=== PATIENT | female | born 1970 ===

== ENCOUNTER 2021-06-07 14:03 | Emergency (ER) | payer OTHER ==
[2021-06-07 22:40] LABS: SARS-CoV-2 PCR by NAA DETECTED (NotDetected)
== END 2021-06-07 17:16 | disposition home or self-care (01) ==
LOC: ERS 14:03
DX: U07.1 COVID-19 (principal); J45.909 Unspecified asthma, uncomplicated; Z79.899 Other long term (current) drug therapy
CPT/HCPCS: 71045; 87804; U0003; U0005